=== PATIENT | male | born 1995 | race Caucasian/White ===

== ENCOUNTER 2025-07-30 08:13 | Day surgery (SDC) | payer OTHER ==
[~2025-07-30] VITALS: Ht 177.8 cm; Wt 72.6 kg
[2025-07-30] MEDS ORDERED: LIDOCAINE 2% 100 MG/5 ML SDV (FOR ANES.) As Ordered ONE (09:39)
[2025-07-30] MEDS ORDERED: ROCURONIUM BROMIDE 50MG/5ML VIAL As Ordered ONE (09:39)
[2025-07-30] MEDS ORDERED: MIDAZOLAM INJ 2 MG/2 ML VIAL As Ordered ONE (09:40)
[2025-07-30] MEDS: OXYMETAZOLINE 0.05% NASAL SPRAY As Ordered ONE (10:00)
[2025-07-30] MEDS: METHYLENE BLUE 0.5% (5 MG/ML) 10 ML AMP As Ordered ONE (10:00)
[2025-07-30] MEDS ORDERED: ONDANSETRON 4MG/2ML VIAL As Ordered ONE (10:36)
[2025-07-30] MEDS ORDERED: dexAMETHasone 4 MG/ML 1 ML VIAL As Ordered ONE (10:36)
[2025-07-30] MEDS ORDERED: ACETAMINOPHEN 1000MG/100ML IV BAG As Ordered ONE (10:38)
[2025-07-30] MEDS: LIDOCAINE W/EPINEPHrine 1% 20 ML VIAL As Ordered ONE (10:39)
[2025-07-30] MEDS ORDERED: SUGAMMADEX SODIUM 500 MG/5 ML VIAL As Ordered ONE (10:44)
[2025-07-30] MEDS ORDERED: HYDROMORPHONE HCL 0.5 MG/0.5 ML SYRINGE IV PRN (11:20)
[2025-07-30] MEDS ORDERED: MORPHINE 4 MG/ML 1 ML VIAL IV PRN (11:20)
[2025-07-30] MEDS ORDERED: LR 1,000 ML IV SCH (12:30)
[2025-07-30] MEDS ORDERED: ONDANSETRON 4MG/2ML VIAL IV PRN (12:30)
[2025-07-30 12:48] VITALS: BP 133/89; TEMP 97.6; O2SAT 100
== END 2025-07-30 12:49 | disposition home or self-care (01) ==
LOC: M SDC 08:13
PROVIDERS: ATTEND Otolaryngology
DX: J34.2 Deviated nasal septum (principal); J34.3 Hypertrophy of nasal turbinates; J34.89 Other specified disorders of nose and nasal sinuses
CPT/HCPCS: 30140; 30520; J0131; J1100; J2250; J2405; J3010; J3490